=== PATIENT | male | born 1990 | race Caucasian/White ===

== ENCOUNTER 2017-06-01 15:18 | Emergency (ER) | payer MEDICAID ==
[~2017-06-01] VITALS: Ht 157.5 cm; Wt 75.0 kg
[~2017-06-01 15:18] MED LIST: CLIN-80 PO; DIPH25CA83 PO; NO HOME MEDS; PRED20TA PO; PRED50TA PO
[2017-06-01] MEDS ORDERED: BUPIVAcaine/PF 2.5 mg/ml (0.25%) 30ml vial IJ ONE (15:35)
[2017-06-01] MEDS ORDERED: DOXY100C2 PO (18:13)
[2017-06-01 18:23] VITALS: BP 123/65
== END 2017-06-01 18:29 | disposition home or self-care (01) ==
LOC: ER 15:19
DX: L02.416 Cutaneous abscess of left lower limb (principal); L02.413 Cutaneous abscess of right upper limb; L02.415 Cutaneous abscess of right lower limb; Z88.0 Allergy status to penicillin
CPT/HCPCS: 10060; 87070; 99284; A6257; A6258; A6449; J3490

== ENCOUNTER 2022-12-09 13:32 | Emergency (ER) | payer MEDICAID, OTHER ==
[~2022-12-09] VITALS: Ht 170.2 cm; Wt 84.1 kg
[~2022-12-09 13:32] MED LIST changes: -CLIN-80 PO; +CLIN-97 PO
[2022-12-09 13:40] VITALS: TEMP 98.3
[2022-12-09 18:05] VITALS: BP 126/74; PULSE 74; RESP 16; O2SAT 93
[2022-12-09] MEDS ORDERED: clindamycin phosphate 150mg/ml inj. IM ONE (20:55)
[2022-12-09] MEDS ORDERED: CLIN-97 PO (20:58)
[2022-12-09] MEDS ORDERED: CHLO118M PO (20:58)
[2022-12-09] MEDS ORDERED: clindamycin 150mg capsule PO ONE (21:20)
== END 2022-12-09 21:28 ==
LOC: ER 13:33 → EEVIPCON 13:33 → ER 21:28
DX: S01.411A Laceration without foreign body of right cheek and temporomandibular area, initial encounter (principal); S00.512A Abrasion of oral cavity, initial encounter; F15.90 Other stimulant use, unspecified, uncomplicated; Z88.0 Allergy status to penicillin; Z79.2 Long term (current) use of antibiotics; Z79.899 Other long term (current) drug therapy; W19.XXXA Unspecified fall, initial encounter; Y93.89 Activity, other specified; Y92.89 Other specified places as the place of occurrence of the external cause; Y99.8 Other external cause status
CPT/HCPCS: 12011; 99283